=== PATIENT | female | born 1940 | race Caucasian/White ===

== ENCOUNTER → 2016-12-28 | Outpatient (CLI) | payer OTHER ==
[~2016-12-28] MED LIST: BLOOD PRESSURE PILL; CHOLESTEROL PILL; MIRALAX17 GM; OS-CAL 500+D CA1 TA1 PO; PRAVASTATIN SOD20 MG PO; SENNA; [UNRECOGNIZED DRUG - REMARK]
--- NOTE | ~2016-12-28 | MY11 ---
[facility] A Service of [facility] RADIOLOGY TEXT RESULTS PATIENT: JORGITO COHEN LOCATION: [facility] : 40 UNIT #: [id number] AGE: [address]: Huan Hough MD SEX: F ORDER DR: [id number] [facility] [address] [place], [place] [address] [id number] O MR#: [id number] Acc #: [id number] NAME: JORGITO COHEN : 1940 SEX: F STUDY DATE/TIME: 12/28/2016 10:15 UNIT: [facility] ROOM: STUDY DESCRIPTION: MY Mammogram Screening Dig Bob Attending Physician: Huan Hough M.D. Referring Physician: Huan Hough M.D. Ordering Physician: Huan Hough M.D. Primary Care Physician: Manolo Quintero D.O. MEDICAL IMAGING REPORT This report is preliminary unless electronic signature is present EXAM Screening mammogram 12/28 INDICATIONS 76-year-old with no personal history, but positive family of breast cancer in her sister. No current complaints. TECHNIQUE Routine digital screening views of both breasts were obtained. Study reviewed with an FDA-approved CAD device. COMPARISON 11/14/2015, 11/13/2014 FINDINGS Breast parenchyma shows scattered fibroglandular densities. No masses or suspicious microcalcifications are seen. Biopsy marker again seen in the left breast. IMPRESSION Benign mammogram. Routine screen 1 year recommended. Patient's over the age of 40 are entered into a reminder system with target due date for the next mammogram. A result letter will be sent to the patient. BIRADS: 2 Benign findings. Dictated by... Manolo Ferris Jr., M.D. THIS IS AN ELECTRONICALLY VERIFIED REPORT [facility] A Service of [facility] RADIOLOGY TEXT RESULTS PATIENT: JORGITO COHEN LOCATION: [facility] : 40 UNIT #: [id number] AGE: [address]: Huan Hough MD SEX: F ORDER DR: Manolo Ferris Jr., M.D. at 12/28/2016 4:48 PM EUNICE/cyndi TD: 12/28/2016 13:36 JOB #: [id number] MEDICAL IMAGING REPORT Page 1 of 1 COPY
== END | disposition home or self-care (01) ==
LOC: CWCC 09:40
DX: Z12.31 Encounter for screening mammogram for malignant neoplasm of breast (principal); Z80.3 Family history of malignant neoplasm of breast; Z98.890 Other specified postprocedural states
CPT/HCPCS: G0202

== ENCOUNTER 2017-06-01 20:37 | Emergency (ER) | payer OTHER ==
[~2017-06-01] VITALS: Ht 165.1 cm; Wt 68.0 kg
--- NOTE | ~2017-06-01 | CT98 ---
[facility] A Service of [facility] RADIOLOGY TEXT RESULTS PATIENT: JORGITO COHEN LOCATION: [facility] : 40 UNIT #: [id number] AGE: [address]: Chuckie Zepeda MD SEX: F ORDER DR: [id number] [place] [id number] E MR#: [id number] Acc #: [id number] NAME: JORGITO COHEN. : 1940 SEX: F STUDY DATE/TIME: 06/01/2017 22:57 UNIT: SED ROOM: STUDY DESCRIPTION: CT Lumbar Spine Wo Cont Attending Physician: Chuckie Zepeda M.D. Ordering Physician: Chuckie Zepeda M.D. Primary Care Physician: Manolo Quintero D.O. MEDICAL IMAGING REPORT This report is preliminary unless electronic signature is present. EXAM Lumbar spine CT without contrast. HISTORY Back pain after fall today. TECHNIQUE CT lumbar spine was performed without contrast. This CT exam was performed with one or more of the following radiation dose reduction techniques: automatic exposure control, adjustment of mA and/or kV according to patient size, and iterative reconstruction. FINDINGS There is an acute compression fracture of the superior plate of L1 with anterior wedging and close to 20% loss of the anterior L1 vertebral body height. Approximately 2 mm posterior displacement of the posterosuperior margin of the L1 vertebral body, with no significant bony central canal stenosis. No fracture extension into the pedicles or posterior elements. Mild left lumbar curve. No additional fracture. Mild disc space narrowing at L2-L3 and L4-L5. Nonobstructing stones in the upper and lower poles of the left kidney measuring up to 5 mm in the lower pole. At L1-L2, there is no disc bulge or protrusion. At L2-L3 and L3-L4, there is qxsi-su-vwqtcabb diffuse disc bulging and mild central canal narrowing. At L4-L5, there is moderately severe diffuse disc bulging and facet and ligamentous hypertrophy with moderately severe central canal stenosis. At L5-S1, there is mild diffuse disc bulging and moderate bilateral facet hypertrophy. [facility] A Service of [facility] RADIOLOGY TEXT RESULTS PATIENT: JORGITO COHEN [place] [facility] [place] 40 UNIT #: [id number] AGE: [address]: Chuckie Zepeda MD SEX: F ORDER DR: IMPRESSION 1. Acute compression fracture of the superior plate of L1 with 20% loss of the anterior L1 vertebral body height and moderate anterior wedging of L1. There is 2 mm posterior displacement of the posterosuperior margin of the L1 vertebral body but no significant bony lumbar central canal stenosis. 2. No additional fracture. 3. No fracture extension in the posterior elements. 4. Nneg-pi-hlnotgjt multilevel degenerative and hypertrophic changes are greater at L4-L5, where there is moderately severe central canal narrowing. 5. Nonobstructing stones in the upper and lower poles of the left kidney measure up to 5 mm in the lower pole. Dictated by... Antwon Bernstein M.D. THIS IS AN ELECTRONICALLY VERIFIED REPORT Antwon Bernstein M.D. at 06/02/2017 4:20 AM HANK/karen TD: 06/02/2017 02:26 JOB #: [id number] MEDICAL IMAGING REPORT Page 1 of 1
[~2017-06-01 20:37] MED LIST changes: -BLOOD PRESSURE PILL; -CHOLESTEROL PILL; -[UNRECOGNIZED DRUG - REMARK]
[2017-06-01] MEDS ORDERED: CHOLESTEROL PILL (21:49)
[2017-06-01] MEDS ORDERED: BLOOD PRESSURE PILL (21:49)
[2017-06-01] MEDS ORDERED: [UNRECOGNIZED DRUG - REMARK] (21:50)
== END 2017-06-02 01:51 | disposition home or self-care (01) ==
LOC: SED 20:37
DX: S32.019A Unspecified fracture of first lumbar vertebra, initial encounter for closed fracture (principal); W19.XXXA Unspecified fall, initial encounter; Z79.899 Other long term (current) drug therapy
CPT/HCPCS: 72131; 99283